=== PATIENT | female | born 2000 | race Caucasian/White ===

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

== ENCOUNTER 2019-04-23 00:54 | Inpatient (IN) | payer OTHER ==
[~2019-04-23] VITALS: Ht 157.5 cm; Wt 84.4 kg
--- NOTE | 2019-04-23 01:30 | NUR ---
TWO UNSUCCESSFUL ATTEMPTS TO START PIV. DR. STRAUSS NOTIFIED WILL HOLD FURTHER ATTEMPTS UNTIL LABS ARE BACK
[2019-04-23 02:04] LABS: BASOPHILS 0.3 % (0-2); EOSINOPHILS 0.5 % (0-7); HEMATOCRIT 38.8 % (36.0-48.0); HEMOGLOBIN 13.2 g/dL (12-16); IMMATURE GRANULOCYTES 0.2 % (0-5); LYMPHOCYTES 14.6 % (15-50); MCH 31.1 pg (26.0-34.0); MCV 91.5 fL (80.0-100.0); MONOCYTES 10.8 % (2-11); NEUTROPHILS 73.6 % (40-80); PLATELET COUNT 333 10x3/uL (130-400); RBC 4.24 10x6/uL (4.00-5.40); RDW 12.2 % (11.5-14.5); WBC 9.1 10x3/uL (4.8-10.8)
[2019-04-23 02:11] LABS: HCG URINE NEGATIVE (NEGATIVE)
[2019-04-23 02:22] LABS: ANION GAP 11.6 mmol/L (8-16); CALCIUM 8.9 mg/dL (8.5-10.1); CARBON DIOXIDE 27.9 mmol/L (21.0-32.0); CREATININE - SERUM 2.6 mg/dL (0.6-1.3); POTASSIUM - SERUM 3.5 mmol/L (3.5-5.1)
[2019-04-23 02:27] LABS: BILIRUBIN NEGATIVE (NEGATIVE); GLUCOSE NEGATIVE (NEGATIVE); KETONE SMALL mg/dL (NEGATIVE); NITRITE NEGATIVE (NEGATIVE); SPECIFIC GRAVITY 1.015 (1.005-1.020); UROBILINOGEN NORMAL (NORMAL)
[2019-04-23 02:29] LABS: BACTERIA FEW /hpf (NEGATIVE); EPITHELIAL CELLS 0-5 /hpf (0-5); RED CELLS - URINE 0-5 /hpf (0-5); WHITE CELLS - URINE 0-5 /hpf (NEGATIVE)
[2019-04-23 02:35] LABS: ALBUMIN 3.7 g/dL (3.4-5.0); BILIRUBIN - TOTAL 0.66 mg/dL (0.2-1.3); PROTEIN - SERUM 7.3 g/dL (6.4-8.2)
[2019-04-23 02:45] VITALS: BP 168/78
[2019-04-23 03:33] VITALS: BP 129/73
--- NOTE | 2019-04-23 03:39 | NUR ---
REPORT TO SLIME HELLER WHO ASSUMES CARE AT THIS TIME
[2019-04-23 06:54] LABS: ANION GAP 12.5 mmol/L (8-16); CALCIUM 8.7 mg/dL (8.5-10.1); CARBON DIOXIDE 27.9 mmol/L (21.0-32.0); CREATININE - SERUM 2.6 mg/dL (0.6-1.3); POTASSIUM - SERUM 3.4 mmol/L (3.5-5.1)
--- NOTE | 2019-04-23 07:05 | NUR ---
ASSUMED CARE OF PT AT THIS TIME. PT SITTING UP IN BED ON PHONE. MOTHER IS AT BEDSIDE. DENIES NEEDS.
[2019-04-23 07:20] VITALS: BP 120/66
--- NOTE | 2019-04-23 11:28 | NUR ---
TRANSFERRED VIA WHEELCHAIR TO 2106, IV INFUSING AT PRESENT IN RIGHT HAND. PATIENT JUST RECEIVED MORPHINE FOR PAIN.
[2019-04-23 11:52] VITALS: BP 147/89; BMI 34.1
--- NOTE | 2019-04-23 12:00 | NUR ---
RESTING IN BED, NO DISTRESS NOTED, LR INFUSING PER R HAND, MOTHER IN ROOM, CONT TO MONITOR PAIN
[2019-04-23 14:12] LABS: HCG SERUM NEGATIVE (NEGATIVE)
--- NOTE | 2019-04-23 15:35 | NUR ---
URINE SPECIMEN TAKEN TO LAB
[2019-04-23 15:39] VITALS: BP 149/93
[2019-04-23 15:50] LABS: UDS - AMPHET NEGATIVE QUAL (NEGATIVE); UDS - BARB NEGATIVE QUAL (NEGATIVE); UDS - BENZO NEGATIVE QUAL (NEGATIVE); UDS - COCAINE NEGATIVE QUAL (NEGATIVE); UDS - OPIATE POSITIVE QUAL (NEGATIVE); UDS - PCP NEGATIVE QUAL (NEGATIVE); UDS - THC NEGATIVE QUAL (NEGATIVE)
[2019-04-23 20:00] VITALS: BP 144/87
[2019-04-24] VITALS: BP 142/92
--- NOTE | 2019-04-24 00:30 | NUR ---
PT DEVELOPED RED RASH ON BOTH OF HER LEGS AFTER SHE USED HIBICLENS WHEN SHE TOOK A SHOWER. SHE DENIES ITCHING AND THE RASH IS NOT RAISED. PT TO CALL IF RASH GETS WORSE AND/OR STARTS ITCHING. VERBALZIED UNDERSTANDING.
--- NOTE | 2019-04-24 02:35 | NUR ---
PT C/O ABDOMINAL PAIN 09/04. SHE DESCRIBES IT ACHY AROUND HER NAVEL THAT RADIATES TO BOTH SIDES OF HER ABDOMEN. SHE REPORTS THE TYLENOL I GAVE HER DID NOT HELP. SPOKE TO [facility] WHO ORDERED MORPHINE X 1. GAVE HER ZOFRAN WELL TO DECREASE NAUSEA SINCE SHE HAS NOT BEEN EATING.
--- NOTE | 2019-04-24 03:13 | NUR ---
AFTER THE PTS COUSIN LEFT SHE CALLED THE NURSES STATION. SHE DID NOT HAVE THE CODE SO I DID NOT GIVE HER ANY INFORMATION.
--- NOTE | 2019-04-24 03:19 | NUR ---
PTS ARM STARTED ITCHING AND BURNING AFTER GIVING HER IV ZOFRAN AND MORPHINE. IV ASSESSED AND BLOOD RETURN NOTED. THERE WAS NO PAIN, SWELLING OR REDNESS WHEN FLUSHED WITH NORMAL SALINE. PT REPORTS THE ITCHING AND BURNING HAS SUBSIDED NOW. PTS MOM CONCERNED ABOUT HER CHEEKS TURNING PINK. EXPLAINED THAT FACIAL FLUSHING CAN BE A SIDE EFFECT OF MORPHINE. PT REPORTS FEELING BETTER. PT TO CALL WITH WORSENING SYMPTOMS/SIDE EFFECTS OR UNCONTROLLED PAIN. VERBALIZED UNDERSTANDING.
[2019-04-24 04:00] VITALS: BP 145/85
[2019-04-24 08:49] LABS: ANION GAP 12.2 mmol/L (8-16); CALCIUM 8.2 mg/dL (8.5-10.1); CREATININE - SERUM 1.9 mg/dL (0.6-1.3); MAGNESIUM - SERUM 1.8 mg/dL (1.8-2.4); POTASSIUM - SERUM 4.2 mmol/L (3.5-5.1)
[2019-04-24 10:59] VITALS: BP 140/83
[2019-04-24 13:48] VITALS: Ht 157.5 cm; Wt 84.4 kg
[2019-04-24 13:52] VITALS: BP 133/85
--- NOTE | 2019-04-24 16:07 | MORECARE ---
CASE MANAGEMENT DISCHARGE SUMMARY PATIENT: TONI AGUIAR UNIT: [id number] ADM DATE: 04/23/19 AGE: 18 : 98 SEX: F ROOM/BED: D.2102 AUTHOR: PAN SCOTT PHYSICIAN: REFERRING PHYSICIAN: DEANGELO WETZEL MD DATE OF SERVICE: 04/24/19 Discharge Plan Patient Name: TONI AGUIAR Facility: [facility]:[place] : 2000 Planned Disposition: Assisted Living Anticipated Discharge Date: Discharge Date: Expected LOS: Initial Reviewer: [email or web address] Initial Review Date: 04/24/2019 Generated: 04/24/19 5:07 pm DCP- Discharge Planning Updated by [email or web address]: Addie Timmons on 04/24/19 11:[address] VITAL SIGNS STABLE. LABS STABILIZING. MOTHER AT THE BEDSIDE. POSSIBLE DISCHARGE TODAY AFTER BMP FOLLOW-UP. Patient Name: TONI AGUIAR Page [id number] at 1607 All edits/amendments must be made on the electronic document DICTATION DATE: 04/24/19 1607 STATION MECHANIC: CAT 04/24/19 1607 RPT#: [id number] DC DATE: STATUS: ADM IN [facility] [address] [place] [address] END OF REPORT
--- NOTE | 2019-04-24 16:19 | MORECARE ---
CASE MANAGEMENT DISCHARGE SUMMARY PATIENT: TONI AGUIAR UNIT: [id number] ADM DATE: 04/23/19 AGE: 18 : [birth year] SEX: F ROOM/BED: D.2101 AUTHOR: PAN SCOTT PHYSICIAN: REFERRING PHYSICIAN: DEANGELO WETZEL MD DATE OF SERVICE: 04/24/19 Discharge Plan Patient Name: TONI AGUIAR Facility: [facility]:[place] : 2000 Planned Disposition: Assisted Living Anticipated Discharge Date: Discharge Date: Expected LOS: Initial Reviewer: [email or web address] Initial Review Date: 04/24/2019 Generated: 04/24/19 5:18 pm DCP- Discharge Planning Updated by [email or web address]: Addie Timmons on 04/24/19 11:[address] VITAL SIGNS STABLE. LABS STABILIZING. MOTHER AT THE BEDSIDE. POSSIBLE DISCHARGE TODAY AFTER BMP FOLLOW-UP. DCPIA - Discharge Planning Initial Assessment Updated by [email or web address]: Kassidy Hammer on 04/24/19 4:07 pm * Is the patient Alert and Oriented? Yes * PCP [facility] APPOINTMENT * Pharmacy [facility] * Preadmission Environment Home with Family * Additional services required to return to the preadmission environment? No * Can the patient safely return to the preadmission environment? Yes * Has this patient been hospitalized within the prior 30 days at any hospital? No Last DP export: 04/24/19 3:07 p Patient Name: TONI AGUIAR Page [id number] at 1619 All edits/amendments must be made on the electronic document DICTATION DATE: 04/24/19 1618 SUEDE CLEANER: CAT 04/24/19 1618 RPT#: [id number] DC DATE: STATUS: ADM IN [facility] [address] [place] [address] END OF REPORT
--- NOTE | 2019-04-24 16:52 | MORECARE ---
CASE MANAGEMENT DISCHARGE SUMMARY PATIENT: TONI AGUIAR UNIT: [id number] ADM DATE: 04/23/19 AGE: 18 : [birth year] SEX: F ROOM/BED: D.2107 AUTHOR: TYLER,DOC PHYSICIAN: REFERRING PHYSICIAN: DEANGELO WETZEL MD DATE OF SERVICE: 04/24/19 Discharge Plan Patient Name: TONI AGUIAR Facility: [facility]:[place] : 2000 Planned Disposition: Assisted Living Anticipated Discharge Date: Discharge Date: Expected LOS: Initial Reviewer: [email or web address] Initial Review Date: 04/24/2019 Generated: 04/24/19 5:51 pm Comments DCP- Discharge Planning Updated by [email or web address]: Kassidy Hammer on 04/24/19 3:[address] Patient Name: TONI AGUIAR Admission Status: ER Accout number: [id number] Admission Date: 04-23-2019 : 2000 Admission Diagnosis: Attending: DEANGELO WETZEL Current LOS: 1 Anticipated DC Date: Planned Disposition: Assisted Living Primary Insurance: [employer] MA[employer]GED [employer]ICAID Discharge Planning Comments: CM MET WITH PATIENT AND HER MOTHER. MOM IS CONCERNED ABOUT HER DAUGHTERS LABS. I SPOKE WITH MD ABOUT THIS CONCERN, HE ASSURES HER HE IS AWARE AND HOUSE CALLS TO FOLLOW AND BMP IN ONE WEEK FOLLOW UP. PATIENT TO DC TO HOME. Construction Stonemason: Kassidy Hammer DCP- Discharge Planning Updated by [email or web address]: Addie Timmons on 04/24/19 11:[address] VITAL SIGNS STABLE. LABS STABILIZING. MOTHER AT THE BEDSIDE. POSSIBLE DISCHARGE TODAY AFTER BMP FOLLOW-UP. DCPIA - Discharge Planning Initial Assessment Updated by [email or web address]: Kassidy Hammer on 04/24/19 4:07 pm * Is the patient Alert and Oriented? Yes * PCP [facility] APPOINTMENT * Pharmacy [facility] * Preadmission Environment Home with Family * Additional services required to return to the preadmission environment? No * Can the patient safely return to the preadmission environment? Yes * Has this patient been hospitalized within the prior 30 days at any hospital? No Last DP export: 04/24/19 3:19 p Patient Name: TONI AGUIAR Page [phone] at 1652 All edits/amendments must be made on the electronic document DICTATION DATE: 04/24/191650 BAND MASTER: CAT 04/24/191650 RPT#: [id number] DC DATE: STATUS: ADM IN [facility] [address] [place] [address] END OF REPORT
--- NOTE | 2019-04-24 17:05 | NUR ---
PT REQUESTED PRESCRIPTION FOR ZOFRAN. CALLED TO OBTAIN ORDER VIA TELEPHONE. HE GAVE ME ORDERS FOR ZOFRAN 4MG Q4HR PRN FOR NAUSEA, 6 TABS.
--- NOTE | 2019-04-24 17:08 | NUR ---
DC PAPERWORK GONE OVER AND SIGNED WITH PT. ALL QUESTIONS ANSWERED. CALLED IN A PRESCRIPTION FOR ZOFRAN PER . PIV REMOVED, CATH TIP FULLY INTACT. ALL VALUBLES TAKIN WITH PT. WHEELED DOWNSTAIRS FOR DC.
--- NOTE | 2019-04-25 08:33 | MORECARE ---
CASE MANAGEMENT DISCHARGE SUMMARY PATIENT: TONI AGUIAR UNIT: [id number] ADM DATE: 04/23/19 AGE: 18 : 98 SEX: F ROOM/BED: D.210 AUTHOR: TYLER,DOC PHYSICIAN: REFERRING PHYSICIAN: DEANGELO WETZEL MD DATE OF SERVICE: 04/25/19 Discharge Plan Patient Name: TONI AGUIAR Facility: [facility]:[place] : 2000 Planned Disposition: Assisted Living Anticipated Discharge Date: Discharge Date: 04/24/2019 Expected LOS: Initial Reviewer: [email or web address] Initial Review Date: 04/24/2019 Generated: 04/25/19 9:33 am Comments DCP- Discharge Planning Updated by [email or web address]: Kassidy Hammer on 04/24/19 3:[address] Patient Name: TONI AGUIAR Admission Status: ER Accout number: [id number] Admission Date: 04-23-2019 : 2000 Admission Diagnosis: Attending: DEANGELO WETZEL Current LOS: 1 Anticipated DC Date: Planned Disposition: Assisted Living Primary Insurance: [employer] MANAGED MEDICAID Discharge Planning Comments: CM MET WITH PATIENT AND HER MOTHER. MOM IS CONCERNED ABOUT HER DAUGHTERS LABS. I SPOKE WITH MD ABOUT THIS CONCERN, HE ASSURES HER HE IS AWARE AND HOUSE CALLS TO FOLLOW AND BMP IN ONE WEEK FOLLOW UP. PATIENT TO DC TO HOME. Sales Agent Financial Report Service: Kassidy Hammer DCP- Discharge Planning Updated by [email or web address]: Addie Timmons on 04/24/19 11:[address] VITAL SIGNS STABLE. LABS STABILIZING. MOTHER AT THE BEDSIDE. POSSIBLE DISCHARGE TODAY AFTER BMP FOLLOW-UP. DCPIA - Discharge Planning Initial Assessment Updated by [email or web address]: Kassidy Hammer on 04/24/19 4:07 pm * Is the patient Alert and Oriented? Yes * PCP [facility] APPOINTMENT * Pharmacy [facility] * Preadmission Environment Home with Family * Additional services required to return to the preadmission environment? No * Can the patient safely return to the preadmission environment? Yes * Has this patient been hospitalized within the prior 30 days at any hospital? No Last DP export: 04/24/19 3:52 p Patient Name: TONI AGUIAR Page 49283 at 0833 All edits/amendments must be made on the electronic document DICTATION DATE: 04/25/19832 SPECIAL INSPECTOR: CAT 04/25/19832 RPT#: [id number] DC DATE:04/24/19 STATUS: DIS IN [facility] [address] [place] [address] END OF REPORT
== END 2019-04-24 17:10 | disposition home or self-care (01) | DRG 683 ==
LOC: D.ER 00:54 → D.M2 11:00 → OBSVTIME 11:00 → D.M2 17:18
PROVIDERS: Family Medicine; ADMIT Internal Medicine Nephrology; ATTEND Internal Medicine Nephrology
DX: N17.9 Acute kidney failure, unspecified (principal); F17.213 Nicotine dependence, cigarettes, with withdrawal; K52.9 Noninfective gastroenteritis and colitis, unspecified; E87.6 Hypokalemia; N76.0 Acute vaginitis